=== PATIENT | female | born 1980 | race Caucasian/White ===

== ENCOUNTER 2018-09-15 02:34 | Emergency (ER) | payer OTHER ==
[~2018-09-15] VITALS: Ht 157.5 cm; Wt 77.1 kg
[~2018-09-15 02:34] MED LIST: ADIPEX-P37.5 MG PO; AMOXICILLIN 50500 M1 PO; AMOXIL 875 MG875 M1 PO; ASPIR 8181 MG PO; ATIVAN0.5 M1 PO; ATIVAN0.5 MG PO; BENADRYL25 MG PO; CYMBALTA30 MG PO; FLONASE 0.05%50 MCG NASAL; IBUPROFEN 200200 M1; IBUPROFEN 800800 M1 PO; IBUPROFEN 800800 MG PO; MAXALT10 MG PO; MUCINEX600 MG; NOHOMEMEDICATIONS; NORCO 5-325 TA1 EACH PO; NORFLEX100 MG PO; PEPCID20 MG; PERCOCET 5-3251 EACH PO; PRISTIQ50 M1 PO; PROPRANOLOL 1010 MG; PROPRANOLOL 4040 M1 PO; ROBAXIN500 MG PO; THERAFLU COLD; TRAZODONE HCL100 MG PO; UNICOMPLEX M TA1 TA1; VITAMIN D-32000 UNIT PO; WELLBUTRIN SR150 M1 PO; ZANAFLEX4 MG PO; ZOFRAN ODT4 MG PO; ZYRTEC10 MG PO
[2018-09-15] MEDS ORDERED: HYDROXYCHLOROQ200 M1 PO (02:47)
[2018-09-15] MEDS ORDERED: DICLOFENAC SODI75 MG PO (02:48)
[2018-09-15] MEDS ORDERED: FLEXERIL PO (02:49)
[2018-09-15] MEDS ORDERED: TRAMADOL 50 MG50 MG PO (02:49)
[2018-09-15 03:51] VITALS: BP 120/82
[2018-09-15] MEDS ORDERED: FIORINAL 50-321 EACH PO (19:50)
[2018-09-15] MEDS ORDERED: PHENERGAN 25 MG25 MG PO (19:50)
== END 2018-09-15 03:52 | disposition home or self-care (01) ==
LOC: M.ERS 02:34
DX: R51 Headache (principal); F17.210 Nicotine dependence, cigarettes, uncomplicated; M06.9 Rheumatoid arthritis, unspecified; Z88.8 Allergy status to other drugs, medicaments and biological substances; Z91.040 Latex allergy status; Z90.710 Acquired absence of both cervix and uterus; Z98.890 Other specified postprocedural states

== ENCOUNTER 2018-09-15 18:12 | Emergency (ER) | payer OTHER ==
[~2018-09-15] VITALS: Ht 157.5 cm; Wt 77.1 kg
[~2018-09-15 18:12] MED LIST changes: +DICLOFENAC SODI75 MG PO; +FLEXERIL PO; +HYDROXYCHLOROQ200 M1 PO; +TRAMADOL 50 MG50 MG PO
[2018-09-15] MEDS ORDERED: PHENERGAN 25 MG25 MG PO (19:50)
[2018-09-15] MEDS ORDERED: FIORINAL 50-321 EACH PO (19:50)
[2018-09-15 20:20] VITALS: BP 127/87
== END 2018-09-15 20:20 | disposition home or self-care (01) ==
LOC: M.ERS 18:12
DX: G43.909 Migraine, unspecified, not intractable, without status migrainosus (principal); M06.9 Rheumatoid arthritis, unspecified; Z90.710 Acquired absence of both cervix and uterus; F17.210 Nicotine dependence, cigarettes, uncomplicated; Z91.040 Latex allergy status; Z88.8 Allergy status to other drugs, medicaments and biological substances

== ENCOUNTER 2019-01-12 19:31 | Emergency (ER) | payer OTHER ==
[~2019-01-12] VITALS: Ht 157.5 cm; Wt 81.7 kg
[~2019-01-12 19:31] MED LIST changes: +FIORINAL 50-321 EACH PO; +PHENERGAN 25 MG25 MG PO
[2019-01-12 19:50] LABS: ABSOLUTE EOSINOPHILS 0.3 thou/uL (0.0-0.7); ABSOLUTE LYMPHOCYTES 3.6 thou/uL (0.8-5.3); ABSOLUTE MONOCYTES 0.7 thou/uL (0.0-1.2); BASOPHILS 0.4 %; EOSINOPHILS 3.1 %; HEMATOCRIT 42.4 % (37.0-47.0); HEMOGLOBIN 14.7 gm/dL (12.0-15.0); LYMPHOCYTES 37.1 %; MCH 30.5 pg (26.0-34.0); MCHC 34.7 g/dL (28.0-37.0); MCV 87.9 fL (80.0-100.0); MONOCYTES 7.1 %; MPV 8.6 fl. (7.2-11.1); NUCLEATED RBCS 0 /100WBC; PLATELET COUNT* 212 thou/uL (150-400); POLYS 52.3 %; RBC 4.83 mil/uL (4.20-5.00); WBC 9.6 thou/uL (4.0-11.0)
[2019-01-12 20:03] LABS: ANION GAP 8 mmol/L (7-16); BUN 7 mg/dL (7-18); CALCIUM 8.7 mg/dL (8.5-10.1); CHLORIDE 105 mmol/L (98-107); CO2 26 mmol/L (21-32); CREATININE 1.1 mg/dL (0.6-1.3); GLUCOSE 100 mg/dL (70-99); POTASSIUM 3.6 mmol/L (3.5-5.1); SODIUM 139 mmol/L (136-145)
[2019-01-12 20:06] LABS: APTT 27.3 Seconds (25.0-31.3); PROTIME 9.8 Seconds (9.20-11.50)
[2019-01-12 20:17] LABS: ALBUMIN 3.7 g/dL (3.4-5.0); ALKALINE PHOSPHATASE 75 U/L (46-116); CK-MB MASS 0.7 ng/mL (<0.5-3.6); LIPASE 327 U/L (73-393); MAGNESIUM 2.1 mg/dL (1.8-2.4); NT-PRO BRAIN NAT PEPTIDE 52 pg/mL (<300); SGOT 14 U/L (15-37); SGPT 25 U/L (30-65); TOTAL BILIRUBIN 0.3 mg/dL (<0.1-1.0); TOTAL PROTEIN 7.1 g/dL (6.4-8.2); TROPONIN-I LEVEL <0.06 ng/mL (<0.06)
[2019-01-12 20:25] VITALS: BP 130/82
--- NOTE | 2019-01-13 10:54 | EKG ---
[place] [address] ELECTROCARDIOGRAM REPORT Name: MP CORREA Room: [facility]#: [id number] Admission: 01/12/19 Attend Phys: Discharge: 01/12/19 Date of : 78 Report #: [id number] THIS REPORT FOR: //name// 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 : 1980 Requested By: Nathan Oviedo Order Number: [id number] MD: Gray Sears Measurements Intervals [place] Rate: 80 P: 25 LA: 153 QRS: 12 QRSD: 113 T: 16 QT: 385 QTc: 445 Interpretive Statements Sinus rhythm Low voltage, precordial leads Borderline T abnormalities, anterior leads Compared to ECG 10/21/2016 01:07:43 Low QRS voltage now present T-wave abnormality still present Electronically Signed On 01-13-2019 10:54:07 CDT by Gray Sears [email or web address] <ELECTRONICALLY SIGNED> By: Gray Sears MD, [facility] 01/13/19 1054 [id number] 36 Gray Sears MD, [facility] /EPI
== END 2019-01-12 20:25 | disposition home or self-care (01) ==
LOC: M.ERS 19:31
PROVIDERS: Family Medicine
DX: R07.89 Other chest pain (principal); F17.210 Nicotine dependence, cigarettes, uncomplicated; M06.9 Rheumatoid arthritis, unspecified; Z88.8 Allergy status to other drugs, medicaments and biological substances; Z91.040 Latex allergy status; Z90.13 Acquired absence of bilateral breasts and nipples; Z90.710 Acquired absence of both cervix and uterus; Z98.890 Other specified postprocedural states

== ENCOUNTER 2021-05-12 17:51 | Emergency (ER) | payer OTHER ==
[~2021-05-12] VITALS: Ht 157.5 cm; Wt 85.3 kg
[2021-05-12] MEDS ORDERED: CYMBALTA60 MG PO (18:09)
[2021-05-12] MEDS ORDERED: LIPITOR40 MG PO (18:09)
[2021-05-12] MEDS ORDERED: PROTONIX40 M4 PO (18:09)
[2021-05-12] MEDS ORDERED: MEDROLDOSEPACK PO (18:51)
[2021-05-12] MEDS ORDERED: FLEXERIL PO (18:51)
[2021-05-12] MEDS ORDERED: NORCO5 PO ×2 (18:51→19:24)
[2021-05-12 19:20] VITALS: BP 135/87
== END 2021-05-12 19:20 | disposition home or self-care (01) ==
LOC: M.ERS 17:51
DX: S16.1XXA Strain of muscle, fascia and tendon at neck level, initial encounter (principal); F17.210 Nicotine dependence, cigarettes, uncomplicated; M06.9 Rheumatoid arthritis, unspecified; Z79.899 Other long term (current) drug therapy; Z90.710 Acquired absence of both cervix and uterus; Z90.89 Acquired absence of other organs; Z91.040 Latex allergy status; Z88.8 Allergy status to other drugs, medicaments and biological substances; X58.XXXA Exposure to other specified factors, initial encounter; Y93.89 Activity, other specified; Y92.89 Other specified places as the place of occurrence of the external cause; Y99.8 Other external cause status